=== PATIENT | male | born 1935 | race Caucasian/White ===

== ENCOUNTER 2016-08-13 12:03 | Inpatient (IN) | payer MEDICARE, OTHER ==
[~2016-08-13] VITALS: Ht 167.6 cm; Wt 94.0 kg
[~2016-08-13 12:03] MED LIST: ALFU10TA11 PO; ATRV10T PO; BISA-67 PO; CHOL5000 PO; CLOT30SO TOPICAL; DEXT1DRO8 BOTH_EYES
[2016-08-13 12:41] VITALS: BP 158/81; PULSE 66; RESP 12; O2SAT 97
[2016-08-13 12:56] LABS: BASOPHILS % (AUTO) 0.3 % (0-3); EOSINOPHILS % (AUTO) 1.1 % (0-5); Mean Corpuscular Hemoglobin 31.4 pg (27.0-35.0); NEUTROPHILS % (AUTO) 75.4 % (40-74); Platelet Count 159 bil/L (150-400)
--- NOTE | 2016-08-13 13:04 | DRSVH ---
PROCEDURE: CT BRAIN (TPA) ([id number]) INDICATIONS: Stroke TECHNIQUE: Noncontrast 4.5 mm thick angled axial sections acquired from the foramen magnum to the vertex, with c oronal reformats. COMPARISON: None. FINDINGS: Image quality: Excellent. CSF spaces: Basal cisterns are patent. No extra-axial fluid collections. The ventricles are symmet obinna in size and shape. Brain: No intracranial bleeds or masses. There is cerebral volume loss for age, with resultant vent ricular and sulcal prominence. There are periventricular and deep white matter chronic small vessel ischemic changes. There is intracranial internal carotid artery atherosclerosis. Skull and face: Calvarium and visualized facial bones appear intact, without suspicious lesions. Sinuses: There is opacification of the right maxillary sinus. Septal deviation to the left is presen t posteriorly. Bilateral anibal bullosa. Mild ethmoidal membrane thickening. Mastoids appear clear. IMPRESSION: 1. No intracranial hemorrhage is identified. 2. Mild age-related atrophy and chronic deep white matter ischemic changes. 3. Chronic sinusitis. This study fulfills neurological imaging criteria for inclusion or exclusion of acute stroke therapie s based on available published neurological guidelines. Dictated by: Jackson Meraz M.D. on 08/13/2016 at 13:03 Approved by: Jackson Meraz M.D. on 08/13/2016 at 13:03
--- NOTE | 2016-08-13 13:07 | ED.REPORT ---
HPI-Stroke / CVA Aug 13, 2016 ED Provider: Miguel Hamilton MD An 80 year old male with a medical history including [place], hyperlipidemia, hypertension, and CAD s/p cardiac stenting presents to the ED via EMS with sudden-onset right arm weakness onset 11:10 this morning, which is his last known well. He also reports facial numbness, nausea, and general malaise. He denies vomiting, diarrhea, fever, or cough. EMS found the patient to have right arm weakness, intermittent discovering dysphasia, and a right-sided facial droop which have mostly resolved in the ED. The patient is not anticoagulated and has had no recent surgeries. Nursing Notes Stated Complaint: RIGHT SIDE WEAKNESS Chief Complaint: Stroke Symptoms Nursing Notes Reviewed: Yes Allergies: Coded Allergies: No Known Drug Allergies (Verified Allergy, Unknown, 10/10/15) Scheduled Alfuzosin ER (Alfuzosin ER) 10 Mg Tab.er.24h 10 MG PO DAILY (Reported) Atorvastatin (Lipitor) 10 Mg Tab 10 MG PO HS (Reported) Cholecalciferol (Vitamin D3) (Vitamin D3) 5,000 Unit Capsule 5,000 UNIT PO BID ( Reported) Clotrimazole 1% (Clotrimazole 1%) 30 Ml Solution 1 APPLIC TOPICAL BID (Reported ) To toenails - rub into nails. Scheduled PRN Bisacodyl (Dulcolax) 5 Mg Tablet.dr 10 MG PO DAILY PRN PRN For Constipation ( Reported) Dextran 70/Hypromellose/Pf (Artificial Tears Drops) 1 Each Droperette 2 DROP BOTH_EYES BID PRN PRN For Eye Irritation (Reported) General Time Seen by Provider: 12:29 Chief Complaint Weakness Arm right Hx Obtained From: Patient, EMS Arrived By: Ambulance Time last known well 1110 Sudden in Onset?: Yes Symptom Duration: 1 - 4 hours Progression Since Onset: Gradually improving Severity: Current: No pain currently Severity: Maximum: No pain Associated with: Reports: Nausea Pertinent Negative: Relieved by nothing Context: Immunizations Unknown Recent Healthcare: No recent doctor visit Similar Sx Previous: No Risk Factors )( TPA Administration/Criteria Stroke Thrombolytic Therapy : TPA Considered: Yes Neurologist Contacted: Yes Disc Risk/Benefit/Alternatives: Yes Consent Obtained: Patient Intensive Monitoring Performed: Yes TPA Administered Intravenously: No, informed refusal NIH Stroke Scale Level of Consciousness: Alert and responsive (0) Ask Month & Age: Both questions right (0) Open/Close Eyes/Hand Art History Professor: Performs both tasks (0) Horizontal EO Movements: None (0) Visual Coleman: No visual loss (0) Facial Palsy: Normal symmetry (0) Right Arm Motor Drift (10s): No drift 10 sec (0) Left Arm Motor Drift (10s): No drift 10 sec (0) Right Leg Motor Drift (5s): No drift 5 sec (0) Left Leg Motor Drift (5s): No drift 5 sec (0) Limb Ataxia FNF/Heel-Hurst: Ataxia in 1 limb (1) Sensation (Arms/Legs/Face): No sensory loss (0) Language Aphasia: No aphasia, normal (0) Dysarthria: Slurring intelligible (1) Extinction/Inattention: No exctinct/inattent (0) NIHSS Score: 2 Time NIHSS Performed: 12:00 Date NIHSS Performed: Aug 13, 2016 Past Medical History Past Medical History Notes: Pt records obtained from [facility] in September 2015 indicated bladder mass. Per VIOLETTA Wynn, pt is aware of this and pt has refused further evaluation. Past Medical History WA in 2007 CAD Hyperlipidemia Hypertension Allergic arthiritis One functioning kidney on right side Hx of kidney stones Past Surgical History Cardiac stenting Left inguinal herniography Bilateral carpal tunnel surgery Family History His father when he was 3 years old. His mother of Alzheimer at the age of 90. Smoking History Never Smoker Social History Alcohol Use: Denies alcohol use Other Social History: Lives alone Ambulatory Status Independent Review of Systems Review of Systems Note: + right-sided facial droop Constitutional: Reports: Malaise, Denies: Fever Respiratory: Denies: Non-productive cough, Shortness of breath GI: Reports: Nausea, Denies: Diarrhea, Vomiting Neurologic: Reports: Focal weakness (Right arm), Numbness (Face), Unable to speak (Intermittent dysphasia) Complete sys rev & neg: except as marked. Physical Exam Initial Vital Signs Vital Signs (First) Date Time Temp Pulse Resp B/P Pulse Ox O2 Delivery O2 Flow Rate FiO2 08/13/16 12:41 36.2 66 12 158/81 97 Room Air Initial VS: Reviewed ENT: Mucous membranes moist, Conjunctiva normal Abdomen / GI: Soft, Non-tender Skin: Warm, Dry, No cyanosis Psychiatric: Mood/affect normal, Behavior normal, Normal thought content General/Constitutional: Awake, Alert, No acute distress Head / Eyes: Atraumatic, Normocephalic, PERRL, EOMI Neck: Supple, Full range of motion Respiratory / Chest: Breath sounds NL, Breath sounds = bilat, No respiratory distress Cardiovascular: Heart rate NL, Regular rhythm, Heart sounds NL Neurologic: Oriented X3, No sensory deficits, Memory NL Speech: Positive: Slurred (Mild) Focal Weakness: Negative: Lower extremity bilat, Upper extremity bilat Cerebellar Dysfunction: Positive: Ataxia peripheral (Right hand) See NIH Stroke Scale Interpretation & Diagnostics Lab Results Interpretation Result Diagram: 08/13/16 1245 08/13/16 1245 Test 08/13/16 12:45 White Blood Count 6.7th/mm3 (3.8-10.1) Red Blood Count 4.71mil/mm3 (4.40-5.80) Hemoglobin 14.8g/dL (13.8-17.2) Hematocrit 42.4% (41.0-50.0) Mean Corpuscular Volume 90.0fL (81-100) Mean Corpuscular Hemoglobin 31.4pg (27.0-35.0) Mean Corpuscular Hemoglobin Concent 34.9% (32.0-37.0) Red Cell Distribution Width 12.2% (12.3-15.4) Platelet Count 159bil/L (150-400) Neutrophils (%) (Auto) 75.4% (40-74) Lymphocytes (%) (Auto) 17.0% (14-46) Monocytes (%) (Auto) 6.0% (4-12) Eosinophils (%) (Auto) 1.1% (0-5) Basophils (%) (Auto) 0.3% (0-3) Prothrombin Time 11.1sec (8.1-12.5) Prothromb Time International Ratio 1.04ratio Sodium Level 137mEq/L (134-144) Potassium Level 4.0mEq/L (3.5-5.2) Chloride Level 100mEq/L (97-108) Carbon Dioxide Level 22mmol/L (18-29) Blood Urea Nitrogen 18mg/dL (8-27) Creatinine 0.91mg/dL (0.76-1.27) Estimat Glomerular Filtration Rate 85mL/min (>59) Glucose Level 141mg/dL (60-99) Calcium Level 8.7mg/dL (8.5-10.1) Total Bilirubin 0.6mg/dL (0.0-1.2) Aspartate Amino Transf (AST/SGOT) 16U/L (0-50) Alanine Aminotransferase (ALT/SGPT) 15U/L (0-44) Alkaline Phosphatase 64U/L (25-160) Troponin T < 0.010ug/L (0.0-0.011) Total Protein 6.4g/dL (6.4-8.4) Albumin 4.2g/dL (3.4-5.0) Hold Bartlett Top Tube Received (Received) ECG Interpretation ECG Interpretation: Sinus rhythm rate 66 LBBB Time: 13:13 Interpreted by: ED physician CT Head Interpretation IMPRESSION: 1. No intracranial hemorrhage is identified. 2. Mild age-related atrophy and chronic deep white matter ischemic changes. 3. Chronic sinusitis. This study fulfills neurological imaging criteria for inclusion or exclusion of acute stroke therapies based on available published neurological guidelines. Dictated by: Jackson Meraz M.D. on 08/13/2016 at 13:03 Study: Head CT no contrast (TPA) Interpretation / Wet Read by: Interpret - Radiologist Re-Eval/Medical Decision Med Decision/Clinical Course Neurologist at [facility] Dr. Biggs, willing to discuss the case with the patient but the patient declines TPA therapy therefore telemedicine contact is not indicated. Patient arrives with a stroke score of [address] He is within the TPA window at approximately 2 hours after the onset of symptoms. On 2 separate occasions in great detail I encouraged the patient to consider TPA as a treatment alternative. He declined this both times. I explained to him that there was a significant chance of better outcome that is more independent functioning with the medication despite its small risk of intracranial hemorrhage. With this information presented in detail multiple times the patient has declined administration of TPA. In his defense, he has improved somewhat since the paramedics contacted him. At the time of EMS contact his right face was weak as was his right arm. At the time I examine him this is no longer the case. He continues to have some small degree of dysarthria and significant ataxia in his right upper extremity. Source of Hx: Old records Re-Evaluation/Progress #1: Time of Eval: 13:08 Patient Status: Condition improved Re-Evaluation/Progress Note: Discussed with patient potential plan for TPA. He is not inclined to take it, but is willing to consider it. Re-Evaluation/Progress #2: Time of Eval: 13:15 Patient Status: Condition improved Re-Evaluation/Progress Note: Patient rechecked. He can walk but is unable to write with his right hand. Re-Evaluation/Progress #3: Time of Eval: 13:30 Patient Status: Condition improved Re-Evaluation/Progress Note: Patient refuses TPA. Discussed with patient CT results, diagnosis, and plan for admit. Patient agrees with plan for care and all questions were addressed. Consultation #1: Consulted With: Neurology Call Returned at: 13:11 Crown Ironer Operator: Will see patient (Video), Agrees with eval, Agrees with plan Note: Dr. Nicholas Liu, [facility]: Recommends walking patient and testing handwriting. Consultation #2: Consulted With: Neurology Call Returned at: 13:22 Crown Ironer Operator: Agrees with eval, Agrees with plan Note: Dr. Nicholas Liu, [facility]: Informed of patient's TPA refusal Consultation #3: Referral / Consult Name: Breana Esquivel MD Consulted With: Hospitalist Call Returned at: 14:02 Crown Ironer Operator: Agrees with eval, Agrees with plan, Accepts admit Counseled Regarding: Diagnosis, Need for admission Patient Discharge & Departure Impression: Primary Impression: Cerebrovascular accident CVA mechanism: unspecified Qualified Code: I63.9 - Cerebral infarction, unspecified Disposition: ADMITTED TO HOSPITAL Discharge Condition All VS Reviewed: Yes Condition: Stable Referrals: Martha Blue (PCP) Crit Care Except Billable Proc Time Spent: 30-74 minutes Services Performed: Patient management by me, Time spent at bedside, Reviewing test results, Reviewing imaging, Discussing patient care, Documentation in record Scribe Attestation Portions of this note were transcribed by Cassandra Chinchilla. I, Dr. Hamilton, personally performed the history, physical exam, and medical decision-making; I reviewed and confirmed the accuracy of the information in the transcribed note. Signed by: Giovanni Torres, 08/13/2016, 14:29 copies to: Martha Blue Kirk H MD Aug 13, 2016 13:07 CASSANDRA CHINCHILLA Aug 13, 2016 13:22
[2016-08-13 13:10] LABS: INR 1.04 ratio
[2016-08-13] MEDS ORDERED: Ondansetron 2 mg/mL 2 mL Inj IVPUSH ONE (13:15)
[2016-08-13 13:45] LABS: TROPONIN T < 0.010 ug/L (0.0-0.011)
[2016-08-13] MEDS ORDERED: Labetalol 5 mg/mL 4 mL Inj IVPUSH PRN (14:30)
[2016-08-13] MEDS ORDERED: hydrALAZINE 20 mg/mL Inj IVPUSH PRN (14:30)
[2016-08-13] MEDS ORDERED: Ondansetron 2 mg/mL 2 mL Inj IV PRN (14:30)
[2016-08-13] MEDS ORDERED: Artificial Tears 15 mL Ophthalmic Solution BOTH_EYES PRN (14:40)
[2016-08-13] MEDS ORDERED: CHOL100043 PO (14:47)
[2016-08-13] MEDS ORDERED: Sodium Chloride NAS 45 mL Spray NASAL PRN (14:50)
--- NOTE | 2016-08-13 14:58 | PCM.HPMED ---
Subjective Date of Service Aug 13, 2016 Primary Provider: Admitting Physician: Primary Care Physician: Heike,[facility] Attending Physician: Chief Complaint: right weak upper extremity HISTORY was OBTAINED FROM PATIENT / [facility] NOTES History of present illness 80-year-old male, gross hematuria with aspirin/Plavix for coronary stent 2007, at 11:15 noticed right arm weakness, EMS documented right facial droop, in the ER improved facial droop ongoing dysarthria, ongoing tongue numbness, improvement of right upper extremity strength. Patient refused TPA and all blood thinners. He indicates CT abdomen and pelvis 3 years ago had a bladder mass, he is declining to go to [place] for a urology visit at the [place]. He will agree to one aspirin right now. No prior CVA. Nausea has resolved. Per EMS BP 172/53, in the ER BP 158/81 Review of Systems - none of the following - F/C/ / wt change/ sob / cough / cp / acid reflux /diarrhea / bleeding/bruising / leg swelling / change in voiding / yeast infections / rash Slowed urine due to BPH FAMILY HX Sister of unknown causes, Alzheimer's SOCIAL HX Never smoker MEDICATIONS Alfuzosin Lipitor 10 Eyedrops Past Medical/Surgical HX BPH Coronary stent 2007/[place]/Hypertension/dyslipidemia Dementia versus cognitive defect noted September 2015 Carpal tunnel Kidney stones/left kidney is not functional Bladder mass CT [facility] September 2015 Acid reflux Back injury Arthritis Allergies Coded Allergies: No Known Drug Allergies (Verified Allergy, Unknown, 10/10/15) PMH Social History Hx Alcohol Use: No Hx Substance Use: No Hx Tobacco Use: No Smoking Status: Never Smoker Exam Vital Signs Vital Sign - Last Date Time Temp Pulse Resp B/P Pulse Ox O2 Delivery O2 Flow Rate FiO2 08/13/16 12:41 36.2 66 12 158/81 97 Room Air Lab and Diagnostics Labs Exam on admission 2 L oxygen NAD A and O x 3 mood affect WNL, redirectable NC/AT no icterus no injected eyes EOMI PERRL /no pharyngeal lesions/ no oral lesions / hearing intact Supple neck CTAB equal chest rise / no accessory muscle use / speaks in full sentences / no rrw RRR S1 S2 / no mrg / 2+ radial pulses Soft nt nd + BS no hepatosplenomegaly Trace edema no cyanosis no ecchymosis of lower extremities No rash / no jaundice KINSEY CNII-XII grossly intact symmetrical No dysmetria of bilateral upper and lower limbs mild left nasolabial fold less prominence mild dysarthria Strength grossly intact of bilateral upper and lower limbs except trace Right extremity weakness INR 1.04 EKG sinus rhythm left bundle branch block, poor R-wave regression, PAC PROCEDURE: CT BRAIN (TPA) ([id number]) INDICATIONS: Stroke TECHNIQUE: Noncontrast 4.5 mm thick angled axial sections acquired from the foramen magnum to the vertex, with coronal reformats. COMPARISON: None. FINDINGS: Image quality: Excellent. CSF spaces: Basal cisterns are patent. No extra-axial fluid collections. The ventricles are symmetric in size and shape. Brain: No intracranial bleeds or masses. There is cerebral volume loss for age , with resultant ventricular and sulcal prominence. There are periventricular and deep white matter chronic small vessel ischemic changes. There is intracranial internal carotid artery atherosclerosis. Skull and face: Calvarium and visualized facial bones appear intact, without suspicious lesions. Sinuses: There is opacification of the right maxillary sinus. Septal deviation to the left is present posteriorly. Bilateral anibal bullosa. Mild ethmoidal membrane thickening. Mastoids appear clear. IMPRESSION: 1. No intracranial hemorrhage is identified. 2. Mild age-related atrophy and chronic deep white matter ischemic changes. 3. Chronic sinusitis. This study fulfills neurological imaging criteria for inclusion or exclusion of acute stroke therapies based on available published neurological guidelines. Result Diagram: 08/13/16 1245 08/13/16 1245 Assessment & Plan Active issues and reason for admission 80-year-old male, prior coronary stent who discontinued Plavix and aspirin due to gross hematuria, known bladder mass unable to go to the [place] for urology visit due to distance, refused TPA for stroke admission, ongoing dysarthria, resolving right upper extremity weakness, less prominent left nasal labial fold. -- Aspirin 1 he agrees to this. Consider social work assistance for urology consult in town post hospitalization to evaluate for gross hematuria from 2007 and bladder mass. -- Statin, pending A1c, lipid panel -- Permissive hypertension, MRI, ultrasound carotids, echo, serial troponin -- AREA CAPTAIN PTOT Elevated blood glucose -- A1c pending Accu-Cheks Chronic issues known prior to admission, present on admission BPH Coronary stent 2007/[place]/Hypertension/dyslipidemia Dementia versus cognitive defect noted September 2015 Carpal tunnel Kidney stones/left kidney is not functional Bladder mass CT [facility] September 2015 Acid reflux Back injury Arthritis Diet speech therapy pending DVT prophylaxis scd ambulate Code full Disposition OBS status Assessment and plan were discussed with patient Breana Esquivel MD Aug 13, 2016 14:58
[2016-08-13] MEDS ORDERED: MetoCLOpramide 5 mg/mL 2 mL Inj IVPUSH ONE (15:00)
[2016-08-13 16:38] VITALS: BP 128/71; PULSE 78; RESP 16; O2SAT 95
[2016-08-13 16:49] VITALS: PULSE 77
--- NOTE | 2016-08-13 17:00 | NUR ---
ADMIT Patient received from the ED via a gurney. He was able to transfer independently in bed. Patient is alert and oriented to person, place and time. Equal hand teletype technician/BLE strength. No facial drooping noted. He denies pain/nausea/SOB. Patient is placed on remote tele. Per telegraphic typewriter installer patient is on sinus rhythm; HR-83. He is NPO at this time. Speech eval is pending at this time. Oriented to room, call light and bathroom. Admit done by Rachel Evans RN.
--- NOTE | 2016-08-13 18:34 | DRSVH ---
PROCEDURE: US BILATERAL DUPLEX DOPPLER IMAGING OF THE CAROTIDS ([id number]) INDICATIONS: Evaluate stroke follow up TECHNIQUE: Color and pulse Doppler interrogation was performed of both carotid systems, with image documentation and velocity measurements. COMPARISON: None. FINDINGS: All stenosis calculations are based on NASCET criteria. Right side: Brachial blood pressure: Not obtained due to peripheral IV Common carotid artery peak systolic velocity: 98 cm/sec. Internal carotid artery peak systolic velocity: 78 cm/sec. Internal carotid artery end diastolic velocity: 10 cm/sec. External carotid artery peak systolic velocity: 113 cm/sec. ICA/CCA peak systolic ratio: 0.8. Schneider scale imaging description: No atheromatous plaque Percent internal carotid artery stenosis: No stenosis. Vertebral artery: Flow direction is antegrade. Left side: Brachial blood pressure: 128/71 mm Hg. Common carotid artery peak systolic velocity: 87 cm/sec. Internal carotid artery peak systolic velocity: 76 cm/sec. Internal carotid artery end diastolic velocity: 14 cm/sec. External carotid artery peak systolic velocity: 83 cm/sec. ICA/CCA peak systolic ratio: 0.88. Schneider scale imaging description: Mild atheromatous plaque at the carotid bulb Percent internal carotid artery stenosis: Less than 50% stenosis. Vertebral artery: Flow direction is antegrade. IMPRESSION: 1. No stenosis of the right internal carotid artery. 2. Less than 50% stenosis of the left internal carotid artery. Dictated by: Gladys Bradley M.D. on 08/13/2016 at 18:32 Approved by: Gladys Bradley M.D. on 08/13/2016 at 18:32
--- NOTE | 2016-08-13 19:40 | NUR ---
Evaluation completed. Please go to "Notes" then click on "Assessments and Notes" (bottom left corner of screen). Then select appropriate discipline tab on top of screen.
[2016-08-13 20:10] VITALS: BP 131/75; PULSE 81; RESP 17; O2SAT 94
[2016-08-14] VITALS (7 sets, daily range): BP systolic 117–145; BP diastolic 72–81; PULSE 61–73; RESP 16–18; O2SAT 94–96
--- NOTE | 2016-08-14 05:22 | NUR ---
Diet Change Pt reports no pain this shift. Diet changed to [facility] soft w/nectars (no straws, cuing to chin tuck) and pt tolerates juice and PBJ sandwich before HS. Bilateral valve fitter and strength, follows commands, AOx4; no apparent defecits post CVA. Pt states he can't write with his R hand yet, but complete control of digits and appendage. Pt on TELE, sinus. CSM intact to all appendages. Pt calls appropriately, no complaints of GI/Cardiac/Resp distress. Will continue to monitor
[2016-08-14 05:34] LABS: Mean Corpuscular Hemoglobin 31.5 pg (27.0-35.0); Mean Corpuscular Volume 90.9 fL (81-100)
[2016-08-14 06:06] LABS: TROPONIN T 0.01 ug/L (0.0-0.011)
--- NOTE | 2016-08-14 10:09 | NUR ---
Evaluation completed. Please go to "Notes" then click on "Assessments and Notes" (bottom left corner of screen). Then select appropriate discipline tab on top of screen.
--- NOTE | 2016-08-14 10:13 | NUR ---
Activity/CVA Assessment Patient up in halls ambulating with PT. Steady gait, equal drag out man and strength. Fine motor skill with eating and writing still not at baseline. Patient states he feels "just about normal."
--- NOTE | 2016-08-14 11:21 | DRSVH ---
[facility] [address] [place] [address] Echocardiogram Report Name: NAV GRACE CStudy Date : 08/14/2016 Height: 66 in Hospital Exam Location: [facility] Weight: 195 lb Gender: Male BSA: 2.0 m2 : 1935 Age: 80 yrs BP: 120/72 mmHg Reason For Study: CVA Ordering Physician: Performed By: Gilbert Trejo Interpretation Summary The left ventricle is mildly dilated. A small thrombus is noted in the left ventricular apex measuring approximately 1.3 cm x 1.3 cm. There is moderate global hypokinesis of the left ventricle. There is apical akinesis. There is a significant dyssynchronous contraction pattern, consistent with a conduction abnormality. The E/A ratio is reversed with an elevated E/E', suggesting impaired early relaxation of the left ventricle with possible increased filling pressures. The IVC is dilated (diameter is greater than 2.1 cm) yet it collapses greater than 50% with a sniff. This suggests a right atrial pressure of 8 mm Hg. There is no significant valvular heart disease. No other echocardiographic abnormalities seen. Procedure: A two-dimensional transthoracic echocardiogram with color flow and Doppler was performed. The study quality was technically good. There is no prior echocardiogram noted for this patient. The patient was in normal sinus rhythm during the exam. Left Ventricle: The left ventricle is mildly dilated. Left ventricular wall thickness is mildly increased. Proximal septal thickening is noted. A small thrombus is noted in the left ventricular apex measuring approximately 1.3 cm x 1.3 cm. The ejection fraction is estimated to be 35-40%. There is moderate global hypokinesis of the left ventricle. There is apical akinesis. There is a significant dyssynchronous contraction pattern, consistent with a conduction abnormality. The E/A ratio is reversed with an elevated E/E', suggesting impaired early relaxation of the left ventricle with possible increased filling pressures. Right Ventricle: The right ventricle is normal in size and function. Atria: The left atrium is moderately dilated. Right atrial size is normal. The interatrial septum is intact with no evidence for an atrial septal defect. Mitral Valve: The mitral valve is normal in structure and function. The mitral valve leaflets are slightly calcified. There is mild mitral regurgitation. Aortic Valve: The aortic valve is normal in structure and function. The aortic valve is trileaflet. The aortic valve opens well. No aortic regurgitation is present. Tricuspid Valve: The tricuspid valve is normal in structure and function. There is trace tricuspid regurgitation. The right ventricular systolic pressure is estimated at 21 mmHg assuming a right atrial pressure of 8 mm Hg. Pulmonic Valve: The pulmonic valve is normal in structure and function. There is trace pulmonic regurgitation. Great Vessels: The aortic root is mildly dilated. The dimensions of the ascending aorta are normal. The pulmonary artery is normal size. The IVC is dilated (diameter is greater than 2.1 cm) yet it collapses greater than 50% with a sniff. This suggests a right atrial pressure of 8 mm Hg. Pericardium/ Pleura There is no pericardial effusion. There is no pleural effusion. MMode/2D Measurements & Calculations LVIDd: 6.0 cm LA dimension: 4.9 cm RA long axis: 5.8 cm Ao root diam LVIDs: 4.5 cm FS: 25.5 % LA A2 area: 24.8 cm RA area: 20.0 cm Aortic Jxn EPSS: 0.69 cm LA A4 area: 24.2 cm RA vol: 59.0 ml IVSd: 1.2 cm LA length (vol): 5.9 cm RA : 29.8 ml/m2 asc Aorta LVPWd: 0.73 cmLA vol: 86.7 ml Diam: 3.8 cm LA vol index: 43.8 ml/m IVC diam: 2.2 cm EDV(MOD-sp2) LV wong. diameter/BSA LV sys. diameter/BSA (cm/m^2): 3.0 (cm/m^2): 2.3 Doppler Measurements & Calculations Ao V2 max MV E max garfield MV E/A: 0.81 TR max garfield: 181.5 cm/sec : 83.0 cm/sec : 47.1 cm/sec Med Peak E' Garfield TR max P.2 mmHg Ao max PG MV A max garfield PA V2 max: 47.7 cm/sec : 2.8 mmHg : 58.2 cm/sec E/E' med: 18.3 PA mean P.56 mmHg Ao mean PG Pulm A Revs Dur PA Accel Time: 0.13 sec : 1.8 mmHg MV A dur: 0.16 sec MV dec time Ao V2 mean PA V2 mean Pulm A Revs Dur - MV A : 0.34 sec : 66.0 cm/sec : 36.2 cm/sec Dur: -0.03 msec Ao V2 VTI PA pr(Accel) : 20.0 cm : 19.1 mmHg Reading Physician:11:20 AM
[2016-08-14] MEDS ORDERED: Heparin 25K Unit/500mL 0.45 NS 25,000 UNIT in IV Premix 1 EACH IV SCH (12:30)
[2016-08-14] MEDS ORDERED: Heparin 5,000 Unit/mL Inj IVPUSH PRN (12:30)
--- NOTE | 2016-08-14 14:11 | DRSVH ---
PROCEDURE: MRI BRAIN WITHOUT CONTRAST ([id number]) INDICATIONS: right arm/facial tongue weak TECHNIQUE: Noncontrast axial T1 spin echo, axial T2 fast spin echo, sagittal and axial FLAIR, coronal T2 fast sp in echo, axial gradient echo, axial diffusion and ADC through the brain. COMPARISON: None. FINDINGS: Image quality: Diagnostic. CSF Spaces: Basal cisterns are patent. No extra-axial fluid collections. Ventricles are prominent in size corresponding parenchymal volume loss is also present. Brain: No intracranial masses or hemorrhage. Schneider/white matter interface is normal. Brainstem appe ars normal. The small to moderate-sized areas of confluent increased flair signal are identified with in the periventricular white matter. Additional scattered areas of increased flair signal are noted within the deep white matter of the supratentorial brain. There is increased signal both involving t he schneider and white matter identified along the superior aspect of the posterior left frontal lobe. Th arun areas of abnormal flair signal correspond with areas of increased diffusion signal, compatible wi th acute ischemia. These areas of ischemia are multifocal rather than representing a large geographi c area of ischemia. Normal intravascular flow voids are present. Skull and face: Calvarium has normal marrow signal. Orbits appear normal. Sinuses: Prominent mucosal thickening of the right maxillary sinus is present. Otherwise, the remai nder of the paranasal sinuses and mastoid air cells are clear. IMPRESSION: 1. Multifocal small areas of acute ischemia within the left frontal lobe are more suggestive of smal l showering emboli, rather than occlusion of a large intracranial vessel. 2. Mild to moderate chronic small vessel ischemic changes. 3. Moderate parenchymal volume loss. 4. Chronic right maxillary sinus disease. Dictated by: Josias Frank M.D. on 08/14/2016 at 13:09 Approved by: Josias Frank M.D. on 08/14/2016 at 13:09
--- NOTE | 2016-08-14 15:45 | PCM.PNMED ---
Subjective Date of Service Aug 14, 2016 Subjective Patient improved neurologically, Rt arm is still clumsy with hand-writing but able to squeeze back to normal Speech also came in normal Exam Vital Signs Vital Sign - Last Date Time Temp Pulse Resp B/P Pulse Ox O2 Delivery O2 Flow Rate FiO2 08/14/16 12:47 36.4 62 16 131/78 95 Room Air Intake and Output 08/13/16 08/13/16 08/14/16 Cumulative From/Thru 15:00 23:00 07:00 08/13/16 12:41 - 08/14/16 05:12 Intake Total 0 ml 420 ml 420 ml Output Total 700 ml 900 ml 1600 ml Balance -700 ml -480 ml -1180 ml Intake Oral 0 ml 420 ml 420 ml Output Urine Total 700 ml 900 ml 1600 ml # Bowel Movements 0 0 0 Exam NAD, comfortably laying down on the bed no JVD, MMM, no LAD RRR, nl s1, s2 no mrg CTAB, no w,c S,ND,NT,normoactive BS+ warm, no edema, pulses 2/2 Neuro:speech coherent, fluent, AAOx3 PERRLA, EOMI, symmetric face, no uvulae tongue deviation, able shrug shoulders equally able rotate neck equally on both sides FTN, dysdiadochokinesia intact, romberg negative, no pronator drift motor 5/5 throughout, sensory intact to dull touch IVs and Medications Medications Reviewed: Medications were reviewed in detail Lab and Diagnostics Result Diagram: 08/14/1651808/14/16518 X-Rays, CTs and MRIs PROCEDURE: MRI BRAIN WITHOUT CONTRAST ([id number]) INDICATIONS: right arm/facial tongue weak TECHNIQUE: Noncontrast axial T1 spin echo, axial T2 fast spin echo, sagittal and axial FLAIR, coronal T2 fast spin echo, axial gradient echo, axial diffusion and ADC through the brain. COMPARISON: None. FINDINGS: Image quality: Diagnostic. CSF Spaces: Basal cisterns are patent. No extra-axial fluid collections. Ventricles are prominent in size corresponding parenchymal volume loss is also present. Brain: No intracranial masses or hemorrhage. Schneider/white matter interface is normal. Brainstem appears normal. The small to moderate-sized areas of confluent increased flair signal are identified within the periventricular white matter. Additional scattered areas of increased flair signal are noted within the deep white matter of the supratentorial brain. There is increased signal both involving the schneider and white matter identified along the superior aspect of the posterior left frontal lobe. These areas of abnormal flair signal correspond with areas of increased diffusion signal, compatible with acute ischemia. These areas of ischemia are multifocal rather than representing a large geographic area of ischemia. Normal intravascular flow voids are present. Skull and face: Calvarium has normal marrow signal. Orbits appear normal. Sinuses: Prominent mucosal thickening of the right maxillary sinus is present. Otherwise, the remainder of the paranasal sinuses and mastoid air cells are clear. IMPRESSION: 1. Multifocal small areas of acute ischemia within the left frontal lobe are more suggestive of small showering emboli, rather than occlusion of a large intracranial vessel. 2. Mild to moderate chronic small vessel ischemic changes. 3. Moderate parenchymal volume loss. 4. Chronic right maxillary sinus disease. Dictated by: Josias Frank M.D. on 08/14/2016 at 13:09 Approved by: Josias Frank M.D. on 08/14/2016 at 13:09 Assessment & Plan Active issues and reason for admission 80-year-old male, prior coronary stent who discontinued Plavix and aspirin due to gross hematuria, known bladder mass unable to go to the [place] for urology visit due to distance, refused TPA for stroke admission, ongoing dysarthria, resolving right upper extremity weakness, less prominent left nasal labial fold. 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 LV thrombus on TTE, POA, unclear onset, unlikely result of acute NM given no signs of ACS at this time, tropx3 sets, EKG-no ischemic chg, repeat TTE did suggest ischemic cardiomyopathy consistent to hx of CAD s/p stent 2007/[place] -Patient is to follow up with cardiology at [place] upon d/c 3.Bladder mass CT KUB September 2015, h/h remained stable, pt denied gross hematuria. 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
[2016-08-14 20:27] LABS: APPEARANCE,URINE CLEAR (CLEAR,HAZY); COLOR,URINE STRAW (YELLOW); OCCULT BLOOD,URINE TRACE (NEGATIVE); UROBILINOGEN,URINE NORMAL (NORMAL)
--- NOTE | 2016-08-14 22:37 | PCM.CONPHA ---
Subjective right weak upper extremity HISTORY was OBTAINED FROM PATIENT / [employer] NOTES History of present illness 80-year-old male, gross hematuria with aspirin/Plavix for coronary stent 2007, at 11:15 noticed right arm weakness, EMS documented right facial droop, in the ER improved facial droop ongoing dysarthria, ongoing tongue numbness, improvement of right upper extremity strength. Patient refused TPA and all blood thinners. He indicates CT abdomen and pelvis 3 years ago had a bladder mass, he is declining to go to [place] for a urology visit at the [place]. He will agree to one aspirin right now. No prior CVA. Nausea has resolved. 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 Bladder mass CT KUB September 2015 Acid reflux Back injury Arthritis Objective Vital Signs Date Time Temp Pulse Resp B/P Pulse Ox O2 Delivery O2 Flow Rate FiO2 08/14/16 20:39 36.4 66 18 117/72 95 Room Air 08/14/16 16:43 36.3 62 16 145/81 95 Room Air 08/14/16 12:47 36.4 62 16 131/78 95 Room Air 08/14/16 09:44 64 08/14/16 08:51 36.6 61 16 125/80 96 Room Air 08/14/16 05:15 66 08/14/16 00:22 36.5 73 16 120/72 94 Room Air Intake and Output 08/12/16 08/13/16 08/14/16 00:00 00:00 00:00 Intake Total 0 ml Output Total 700 ml Balance -700 ml Weight (Kilograms): 88.500 Test 08/13/16 12:45 08/14/16 05:19 08/14/16 19:00 Neutrophils (%) (Auto) 75.4% (40-74) Lymphocytes (%) (Auto) 17.0% (14-46) Monocytes (%) (Auto) 6.0% (4-12) Eosinophils (%) (Auto) 1.1% (0-5) Basophils (%) (Auto) 0.3% (0-3) Prothrombin Time 11.1sec (8.1-12.5) Prothromb Time International Ratio 1.04ratio Total Bilirubin 0.6mg/dL (0.0-1.2) Aspartate Amino Transf (AST/SGOT) 16U/L (0-50) Alanine Aminotransferase (ALT/SGPT) 15U/L (0-44) Alkaline Phosphatase 64U/L (25-160) Total Protein 6.4g/dL (6.4-8.4) Albumin 4.2g/dL (3.4-5.0) Hold Bartlett Top Tube Received (Received) White Blood Count 7.4th/mm3 (3.8-10.1) Red Blood Count 4.61mil/mm3 (4.40-5.80) Hemoglobin 14.5g/dL (13.8-17.2) Hematocrit 41.9% (41.0-50.0) Mean Corpuscular Volume 90.9fL (81-100) Mean Corpuscular Hemoglobin 31.5pg (27.0-35.0) Mean Corpuscular Hemoglobin Concent 34.6% (32.0-37.0) Red Cell Distribution Width 12.5% (12.3-15.4) Platelet Count 173bil/L (150-400) Sodium Level 138mEq/L (134-144) Potassium Level 4.3mEq/L (3.5-5.2) Chloride Level 102mEq/L (97-108) Carbon Dioxide Level 24mmol/L (18-29) Blood Urea Nitrogen 15mg/dL (8-27) Creatinine 0.97mg/dL (0.76-1.27) Estimat Glomerular Filtration Rate 79mL/min (>59) Glucose Level 106mg/dL (60-99) Calcium Level 8.8mg/dL (8.5-10.1) Troponin T 0.010ug/L (0.0-0.011) Triglycerides Level 104mg/dL (0-149) Cholesterol Level 149mg/dL (100-199) LDL Cholesterol, Calculated 74.200mg/dL (0-99) VLDL Cholesterol 20.800mg/dL HDL Cholesterol 54mg/dL (>39) Cholesterol/HDL Ratio 2.76 (0.0-4.4) Urine Color Straw (YELLOW) Urine Appearance Clear (CLEAR,HAZY) Urine pH 7.0 (5.0-8.0) Urine Specific [place] 1.010 (1.003-1.035) Urine Protein Negativemg/dL (NEG,TRACE) Urine Glucose (UA) Negativemg/dL (NEGATIVE) Urine Ketones Negativemg/dL (NEGATIVE) Urine Occult Blood Trace (NEGATIVE) Urine Nitrite Positive (NEGATIVE) Urine Bilirubin Negative (NEGATIVE) Urine Urobilinogen Normalmg/dL (NORMAL) Urine Leukocyte Esterase Negative (NEGATIVE) Urine RBC 0-2/hpf (0-2) Urine WBC 0-5/hpf (0-5) Urine Epithelial Cells Few/hpf (NONE-MOD) Urine Crystals None seen (NONE SEEN) Urine Bacteria Few/hpf (NONE-FEW) Urine Hyaline Casts None/lpf (NONE) Urine Granular Casts None seen (NONE SEEN) Urine Waxy Casts None seen (NONE SEEN) Urine Red Blood Cell Casts None seen (NONE SEEN) Urine White Blood Cell Casts None seen (NONE SEEN) Urine Mucus Present (None Seen) Urine Trichomonas None seen (NONE SEEN) Urine Yeast None (NONE SEEN) Urinalysis Comment None Urine Culture Reflexed Indicated Assessment/Plan Assessment/Plan ASSESSMENT PATIENT ADMITTED FOR CVA AND EMBOLIC STROKE WARFARIN PER PHARMACY ORDERED WITH ENOXAPARIN BRIDGING PLAN WARFARIN TO START AT 5MG 08/14. INR IS 1.04 ENOXAPARIN 120 MG ONCE GIVEN 08/14 WITH 80 MG Q12H START 08/15 FOR BRIDGING GOAL INR TO BE 2-3 PHARMACY WILL CONTINUE TO FOLLOW DAILY. THANK YOU FOR THE CONSULT IN THE CARE OF THIS PATIENT Irish SAENZ Kalani Taylor Aug 14, 2016 22:37
[2016-08-15] VITALS (9 sets, daily range): BP systolic 108–133; BP diastolic 69–85; PULSE 54–83; RESP 16–20; O2SAT 93–98
[2016-08-15 05:37] LABS: BASOPHILS % (AUTO) 0.3 % (0-3); EOSINOPHILS % (AUTO) 2.5 % (0-5); MONOCYTES % (AUTO) 7.8 % (4-12); Mean Corpuscular Hemoglobin 31.6 pg (27.0-35.0); NEUTROPHILS % (AUTO) 54.8 % (40-74); Platelet Count 175 bil/L (150-400)
[2016-08-15 05:55] LABS: Magnesium 1.9 mg/dL (1.6-2.6); Phosphorus 3.9 mg/dL (2.5-4.9)
[2016-08-15 05:56] LABS: INR 1.05 ratio
--- NOTE | 2016-08-15 07:50 | NUR ---
Activity Neuro check WNL. No complaints of headache, chest pain, or SOB. No signs of aspiration, pt tolerates diet and sips of thin liquids. Pt uneasy with new blood thinning medications, willing for education but needs reinforcement. Tele SR correa 56. Care continues
--- NOTE | 2016-08-15 10:59 | PCM.PNMED ---
Subjective Date of Service Aug 15, 2016 Subjective Patient tolerated the coagulant therapy, bridging heparin and Coumadin Denied any GI bleeding, headache, dizziness Able to ambulate to the bathroom Hand is still clumsy, no other signs of limb weakness Exam Vital Signs Vital Sign - Last Date Time Temp Pulse Resp B/P Pulse Ox O2 Delivery O2 Flow Rate FiO2 08/15/16 09:58 36.4 78 20 125/74 95 Room Air Intake and Output 08/14/16 08/14/16 08/15/16 Cumulative From/Thru 15:00 23:00 07:00 08/13/16 12:41 - 08/15/16 05:41 Intake Total 500 ml 588 ml 1508 ml Output Total 1000 ml 1100 ml 3700 ml Balance -500 ml -512 ml -2192 ml Intake Oral 500 ml 588 ml 1508 ml Output Urine Total 1000 ml 1100 ml 3700 ml # Voids 4 4 # Bowel Movements 0 0 Exam NAD, comfortably laying down on the bed no JVD, MMM, no LAD RRR, nl s1, s2 no mrg CTAB, no w,c S,ND,NT,normoactive BS+ warm, no edema, pulses 2/2 Neuro exam non focal grossly, unchanged IVs and Medications Medications Reviewed: Medications were reviewed in detail Lab and Diagnostics Result Diagram: 08/15/16 05008/15/16 050 X-Rays, CTs and MRIs PROCEDURE: MRI BRAIN WITHOUT CONTRAST ([id number]) INDICATIONS: right arm/facial tongue weak TECHNIQUE: Noncontrast axial T1 spin echo, axial T2 fast spin echo, sagittal and axial FLAIR, coronal T2 fast spin echo, axial gradient echo, axial diffusion and ADC through the brain. COMPARISON: None. FINDINGS: Image quality: Diagnostic. CSF Spaces: Basal cisterns are patent. No extra-axial fluid collections. Ventricles are prominent in size corresponding parenchymal volume loss is also present. Brain: No intracranial masses or hemorrhage. Schneider/white matter interface is normal. Brainstem appears normal. The small to moderate-sized areas of confluent increased flair signal are identified within the periventricular white matter. Additional scattered areas of increased flair signal are noted within the deep white matter of the supratentorial brain. There is increased signal both involving the schneider and white matter identified along the superior aspect of the posterior left frontal lobe. These areas of abnormal flair signal correspond with areas of increased diffusion signal, compatible with acute ischemia. These areas of ischemia are multifocal rather than representing a large geographic area of ischemia. Normal intravascular flow voids are present. Skull and face: Calvarium has normal marrow signal. Orbits appear normal. Sinuses: Prominent mucosal thickening of the right maxillary sinus is present. Otherwise, the remainder of the paranasal sinuses and mastoid air cells are clear. IMPRESSION: 1. Multifocal small areas of acute ischemia within the left frontal lobe are more suggestive of small showering emboli, rather than occlusion of a large intracranial vessel. 2. Mild to moderate chronic small vessel ischemic changes. 3. Moderate parenchymal volume loss. 4. Chronic right maxillary sinus disease. Dictated by: Josias Frank M.D. on 08/14/2016 at 13:09 Approved by: Josias Frank M.D. on 08/14/2016 at 13:09 Assessment & Plan Active issues and reason for admission 80-year-old male, prior coronary stent who discontinued Plavix and aspirin due to gross hematuria, known bladder mass unable to go to the [place] for urology visit due to distance, refused TPA for stroke admission, ongoing dysarthria, resolving right upper extremity weakness, less prominent left nasal labial fold. 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 LV thrombus on TTE, POA, unclear onset, unlikely result of acute MS given no signs of ACS at this time, tropx3 sets, EKG-no ischemic chg, repeat TTE did suggest ischemic cardiomyopathy consistent to hx of CAD s/p stent 2007/[place] -Patient is to follow up with cardiology at [place] upon d/c 3.Bladder mass CT KUB September 2015, h/h remained stable, pt denied gross hematuria. 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 VTE Mechanical Devices: Intermittant Pneumatic CD Time spent 35 minutes Florence Ware MD Aug 15, 2016 10:59
--- NOTE | 2016-08-15 14:26 | NUR ---
Social Work: Initial Assessment Data & Assessment: EMR Reviewed. See Initial Assessment. Title I Coordinator met with patient at bedside to complete initial assessment, discuss discharge planning and SW role explained. Patient is a 80 y/o male that admitted due to CVA. Patient's NOK is Ayanna Hernandez [phone] his daughter. Patient does not have a DPOA and declined information. Patient's primary insurance is [employer]. Patient PCP is at Clinic, [facility]. Patient does not have LTC insurance. Patient does not have SNF or HH history. Patient lives in an apartment on the first floor. Patient does not have any DME. It is anticipated that the patient will discharge home no needs via daughter's POV. Patient will require Lovenox shots four days after discharge and Coumadin for approximately a month per physician following today. Patient receives prescriptions from the [facility] mail order. SW will call [facility] on Tuesday and find out how a patient is to get new prescriptions filled when leving the hospital. SW will continue to follow patient. Plan: Patient will disharge home when medically stable via POV. SW will call [facility] on Tuesday and find out how the patient will fill new prescriptions and where is the closest place to home that he can have labs drown and shots given. SW will continue to follow. Annita Hernandez LMSW, TRACI Addendum: 08/15/16 at 1439 by ANNITA HERNANDEZ Amended: Links added.
--- NOTE | 2016-08-15 16:20 | PCM.PHAPRO ---
Progress Date of Service: Aug 15, 2016 Warfarin dosing Indication: Stroke Home Dose: New Start Anticoagulation Trends: Date Aug 15-Jul INR 1.04 1.05 INR change 0.01 Warf Dose 5 mg 5 mg Concurrently bridged with 80mg of enoxaparin q12h GOAL INR: 2-3 Summary: Continue with 5 mg dose today. Pharmacy will continue to follow daily. Thank you for consulting pharmacy in the care of this patient. Garret Story Aug 15, 2016 16:20
--- NOTE | 2016-08-15 18:01 | NUR ---
Anxiety/Activity Pt anxious about d/c home tomorrow. [facility]. tar pot worker is aware, and charge nurse informed as she will be here again tomorrow. Pt OOB frequently in room and requests to ambulate hallways. Bed down and in locked position, call light w/in reach
[2016-08-16 00:25] VITALS: BP 135/82; PULSE 69; RESP 18; O2SAT 97
--- NOTE | 2016-08-16 03:54 | NUR ---
Anxiety with Enoxaparin injection Patient stated that he was extremely hesitant and anxious about injecting himself with enoxaparin. Stated that he is trying to get a neighbor who is a physician to give him the injections. Procedure was explained in detail. Patient still felt too anxious to administer. He stated that he would try again in the morning. VSS. Call light within reach. Resting comfortably.
[2016-08-16 05:37] LABS: BASOPHILS % (AUTO) 0.3 % (0-3); EOSINOPHILS % (AUTO) 3.5 % (0-5); MONOCYTES % (AUTO) 8.6 % (4-12); Mean Corpuscular Volume 91.4 fL (81-100); NEUTROPHILS % (AUTO) 51.4 % (40-74); Platelet Count 169 bil/L (150-400)
[2016-08-16 05:44] LABS: INR 1.05 ratio
[2016-08-16 05:52] LABS: Magnesium 1.9 mg/dL (1.6-2.6); Phosphorus 4.2 mg/dL (2.5-4.9)
[2016-08-16 06:42] VITALS: BP 134/72; PULSE 66; RESP 20; O2SAT 96
[2016-08-16] MEDS ORDERED: LOV80 SUBQ (10:10)
[2016-08-16] MEDS ORDERED: ASPI81TA3 PO (10:10)
[2016-08-16] MEDS ORDERED: WARF5TAB PO (10:10)
[2016-08-16] MEDS ORDERED: ATOR40TA69 PO (10:10)
[2016-08-16 10:22] VITALS: PULSE 87
[2016-08-16 13:42] VITALS: BP 120/78; PULSE 69; RESP 20; O2SAT 98
--- NOTE | 2016-08-16 15:42 | NUR ---
Social Work Continued Discharge Planning: Systems Manager spoke with patient's nurse Pam [phone] at the [facility] and she stated that the patient's prescriptions can be picked up at [facility] [address] [place] [address] . Patient will report to the [facility] in [facility] to complete his labs needed. [facility]'s [facility] nurse will follow-up with him and notify him of when he is able to see the rn documentation. Systems Manager called the patient's daughter and notified her of the information above. Systems Manager will continue to follow. Amaya Kaplan.
--- NOTE | 2016-08-16 18:09 | PCM.PNMED ---
Subjective Date of Service Aug 16, 2016 Subjective denies any new issues/complaints Exam Vital Signs Vital Sign - Last Date Time Temp Pulse Resp B/P Pulse Ox O2 Delivery O2 Flow Rate FiO2 08/16/16 13:42 36.7 69 20 120/78 98 Room Air Intake and Output 08/15/16 08/15/16 08/16/16 Cumulative From/Thru 15:00 23:00 07:00 08/13/16 12:41 - 08/16/16 06:42 Intake Total 1040 ml 1200 ml 3748 ml Output Total 795 ml 1350 ml 5845 ml Balance 245 ml -150 ml -2097 ml Intake Oral 1040 ml 1200 ml 3748 ml Output Urine Total 795 ml 1350 ml 5845 ml # Voids 1 4 9 # Bowel Movements 0 0 General: Alert, Oriented X3, Cooperative, No Acute Distress Eyes: PERRLA, EOMI, Scleral Anicteric Mouth: Mucous Membr Moist/[place] Neck: Supple Chest & Lungs: Chest Wall Normal, Clear to auscultation & percussion Cardiovascular: Regular Rate/Rhythm Abdomen: Non-tender, Non-distended, Normoactive bowel tones, Soft Extremities: No cyanosis/clubbing/edma bilat Neurological: Grossly Neurologically Intact, Cranial Nerves 2-12 Intact, Normal Speech IVs and Medications Medications Reviewed: Medications were reviewed in detail Lab and Diagnostics Result Diagram: 08/16/1644908/16/16 045 X-Rays, CTs and MRIs PROCEDURE: MRI BRAIN WITHOUT CONTRAST ([id number]) INDICATIONS: right arm/facial tongue weak TECHNIQUE: Noncontrast axial T1 spin echo, axial T2 fast spin echo, sagittal and axial FLAIR, coronal T2 fast spin echo, axial gradient echo, axial diffusion and ADC through the brain. COMPARISON: None. FINDINGS: Image quality: Diagnostic. CSF Spaces: Basal cisterns are patent. No extra-axial fluid collections. Ventricles are prominent in size corresponding parenchymal volume loss is also present. Brain: No intracranial masses or hemorrhage. Schneider/white matter interface is normal. Brainstem appears normal. The small to moderate-sized areas of confluent increased flair signal are identified within the periventricular white matter. Additional scattered areas of increased flair signal are noted within the deep white matter of the supratentorial brain. There is increased signal both involving the schneider and white matter identified along the superior aspect of the posterior left frontal lobe. These areas of abnormal flair signal correspond with areas of increased diffusion signal, compatible with acute ischemia. These areas of ischemia are multifocal rather than representing a large geographic area of ischemia. Normal intravascular flow voids are present. Skull and face: Calvarium has normal marrow signal. Orbits appear normal. Sinuses: Prominent mucosal thickening of the right maxillary sinus is present. Otherwise, the remainder of the paranasal sinuses and mastoid air cells are clear. IMPRESSION: 1. Multifocal small areas of acute ischemia within the left frontal lobe are more suggestive of small showering emboli, rather than occlusion of a large intracranial vessel. 2. Mild to moderate chronic small vessel ischemic changes. 3. Moderate parenchymal volume loss. 4. Chronic right maxillary sinus disease. Dictated by: oJsias Frank M.D. on 08/14/2016 at 13:09 Approved by: Josias Frank M.D. on 08/14/2016 at 13:09 Assessment & Plan 80-year-old male, prior coronary stent who discontinued Plavix and aspirin due to gross hematuria, known bladder mass unable to go to the [place] for urology visit due to distance, refused TPA for stroke admission presenting with dysarthria, resolving right upper extremity weakness, less prominent left nasal labial fold. 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 Ware's earlier notes: "spoke to Cardiollgy 08/14, recommended to start AC, started LMWH 120mg, followed by 80mg q12h, bridge with Coumadin. pt should continue aspirin given CAD as well, will continue to hold Plavix" - I also discussed patient's case with neurology (Dr. Montes) and cardiology ( Dr. Worthy) on 08/16/16 who agree with above plan and both recommend further f/ u w/ neurology and cardiology within one month. # LV thrombus on TTE, POA, unclear chronicity - TTE did suggest ischemic cardiomyopathy consistent to hx of CAD s/p stent 2007 / - c/w Lovenox to Coumadin bridge (as noted above) - further f/u w/ cardiology as outpatient # Bladder mass CT [facility] September 2015, h/h remained stable, pt denied gross hematuria. unlikely absolute contraindication for AC - f/u h/h closely on newly starting AC - further f/u w/ urology as outpatient chronic, stable: # BPH # HTN, stable - continue home meds # Carpal tunnel # Kidney stones/left kidney is not functional # Acid reflux # Back injury # Arthritis Dispo: possibly tomorrow VTE Mechanical Devices: Intermittant Pneumatic CD Time spent 35 min Bennie Fung Aug 16, 2016 18:09
[2016-08-16 20:30] VITALS: BP 150/80; PULSE 69; RESP 20; O2SAT 96
--- NOTE | 2016-08-17 01:13 | NUR ---
Activity Patient ambulating around room and hallway this shift. Patient states no pain or deficits from cva. Patient administered lovenox injection correctly. VSS. Call light within reach. Patient resting comfortably.
[2016-08-17 04:23] VITALS: BP 127/76; PULSE 65; RESP 16; O2SAT 96
[2016-08-17 05:58] LABS: INR 1.2 ratio
--- NOTE | 2016-08-17 12:53 | NUR ---
Social Work Continued Discharge Planning: SW spoke to patient regarding discharge plan. Patient required PT/INR follow up upon discharge. FLORENCE spoke to CT worker Pam, who states that patient able to be followed at [facility] center for INR follow up anytime from 8am-3pm following discharge. FLORENCE discussed with patient. Patient has no transport/funds to and from for INR follow up. FLORENCE discussed with [facility] worker Pam options for transport. Pam recommended [facility] service arrangements. FLORENCE arranged [facility] for INR monitoring. [facility] choice list offered. Patient states choice as [facility]. FLORENCE contacted [facility] rep Aaron who was advised for discharge for today for follow up tomorrow. SW notated on face to face for follow up with [facility] per [facility] request. Patient aware to obtain scripts from [facility] as medications were sent to pharmacy. Patient states daughter to provide transport home. No other needs identified at this time. PLAN: Home with [facility] for INR monitoring via [facility]. SW to follow if further needs identified. Bryan SAINZ Addendum: 08/17/16 at 1407 by MARK CALDERON SS STOC tomorrow per [facility] repDalila Calderon
--- NOTE | 2016-08-17 13:20 | PCM.DIMED ---
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 unclear chronicity # History of bladder mass of unclear etiology and requiring further followup by urology as outpatient. chronic and stable issues: # History of hypertension. # Carpal tunnel # Kidney stones # Acid reflux # Back injury # Arthritis Medication Instructions Continue with subcutaneous Lovenox and oral Warfarin (Coumadin) until INR greater or equal to 2. Once INR greater or equal to 2 then stop Lovenox and if INR between 2-3 continue with Warfarin. If INR greater than 3 then check with primary care provider to adjust the Warfarin dose. Visiting nurse ([facility]) to check INR on 08/18/16 with results to primary care provider at the [place] and then followup with further instructions on when to repeat INR and adjust Coumadin dose as needed. Diet Low fat, Low Sodium, Heart Healthy Activity No restrictions Call your provider Fever or Chills, Shortness of breath, Bleeding, Chest pain, Weakness (unilateral ) Patient Instructions Seek immediate medical attention if any new or worsening signs or symptoms occur. Outpatient occupational therapy for right upper extremity for fine motor control. Visiting nurse ([facility]) to check INR on 08/18/16 with results to primary care provider at the [place] and then followup with further instructions on when to repeat INR and adjust Coumadin dose as needed. Goal INR is 2-3. Follow-up plan 1. Followup with your primary care provider at the [place] in 2-7 days and for further referral to therapist radiation and neurologist within the next 2-4 weeks ( check with your primary care provider for authorization to see the specialist locally if possible). Follow-up Provider: [facility] Bennie Fung Aug 17, 2016 13:19
--- NOTE | 2016-08-17 14:40 | NUR ---
Evaluation completed. Please go to "Notes" then click on "Assessments and Notes" (bottom left corner of screen). Then select appropriate discipline tab on top of screen.
[2016-08-17] MEDS ORDERED: Warfarin 5 MG, Warfarin 2.5 MG PO ONE ×2 (17:00)
--- NOTE | 2016-08-17 17:14 | NUR ---
DISCHARGE Removed saline lock IV from right forearm, catheter intact. Administered today's dose of coumadin prior to discharge. Reviewed new medications and dosages with patient and daughter at bedside. Patient's family had already picked up new medications at [place] [facility] prior patient's discharge. Advised to make appointment with PCP at [place] within next 5 days for referral to cardiology. Patient was taught how to administer Lovenox injections and administered this mornings dose without any difficulty. Patient wheeled out to family vehicle in wheelchair.
--- NOTE | 2016-08-17 17:43 | PCM.DC.MED ---
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 unclear chronicity # History of bladder mass of unclear etiology and requiring further followup by urology as outpatient. chronic and stable issues: # History of hypertension. # Carpal tunnel # Kidney stones # Acid reflux # Back injury # Arthritis Procedures XRay, CTs & MRIs PROCEDURE: MRI BRAIN WITHOUT CONTRAST ([id number]) IMPRESSION: 1. Multifocal small areas of acute ischemia within the left frontal lobe are more suggestive of small showering emboli, rather than occlusion of a large intracranial vessel. 2. Mild to moderate chronic small vessel ischemic changes. 3. Moderate parenchymal volume loss. 4. Chronic right maxillary sinus disease. Dictated by: Josias Frank M.D. on 08/14/2016 at 13:09 Approved by: Josias Frank M.D. on 08/14/2016 at 13:09 Cardiac Echo Impression Date of Service: 08/14/16 0800 Echocardiogram Report Interpretation Summary The left ventricle is mildly dilated. A small thrombus is noted in the left ventricular apex measuring approximately 1.3 cm x 1.3 cm. There is moderate global hypokinesis of the left ventricle. There is apical akinesis. There is a significant dyssynchronous contraction pattern, consistent with a conduction abnormality. The E/A ratio is reversed with an elevated E/E', suggesting impaired early relaxation of the left ventricle with possible increased filling pressures. The IVC is dilated (diameter is greater than 2.1 cm) yet it collapses greater than 50% with a sniff. This suggests a right atrial pressure of 8 mm Hg. There is no significant valvular heart disease. No other echocardiographic abnormalities seen. Reading Physician:11:23 AM Humphrey Paniagua MD Report status: Signed with Addenda REPORT#: [id number] Other Diagnostics Date of Service: 08/13/16 1430 PROCEDURE: US BILATERAL DUPLEX DOPPLER IMAGING OF THE CAROTIDS ([id number]) IMPRESSION: 1. No stenosis of the right internal carotid artery. 2. Less than 50% stenosis of the left internal carotid artery. Dictated by: Gladys Bradley M.D. on 08/13/2016 at 18:32 Approved by: Gladys Bradley M.D. on 08/13/2016 at 18:32 Brief History 80-year-old male, prior coronary stent who discontinued Plavix and aspirin due to gross hematuria, known bladder mass unable to go to the [place] for urology visit due to distance, refused TPA for stroke admission presenting with dysarthria, resolving right upper extremity weakness, less prominent left nasal labial fold. 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 Ware's earlier notes: "spoke to Cardiollgy 08/14, recommended to start AC, started LMWH 120mg, followed by 80mg q12h, bridge with Coumadin. pt should continue aspirin given CAD as well, will continue to hold Plavix" - I also discussed patient's case with neurology (Dr. Montes) and cardiology ( Dr. Worthy) on 08/16/16 who agree with above plan and both recommend further f/ u w/ neurology and cardiology within one month. # LV thrombus on TTE, POA, unclear chronicity - TTE did suggest ischemic cardiomyopathy consistent to hx of CAD s/p stent 2007 / - c/w Lovenox to Coumadin bridge (as noted above) - further f/u w/ cardiology as outpatient # Bladder mass CT [facility] September 2015, h/h remained stable, pt denied gross hematuria. unlikely absolute contraindication for AC - f/u h/h closely on newly starting AC - further f/u w/ urology as outpatient chronic, stable: # BPH # HTN, stable - continue home meds # Carpal tunnel # Kidney stones/left kidney is not functional # Acid reflux # Back injury # Arthritis by day of d/c neuro exam is fairly non-focal. CN II-XII intact. lungs CTA bilat pt setup with HH visiting nurse to check INR tomorrow and [facility] to further manage bridging Lovenox to Coumadin as outpatient. I also attempted to set patient up with local cardiology but have been told his PCP at [place] needs to authorize out of [facility] referrals. Exam Vital Signs (Last) Date Time Temp Pulse Resp B/P Pulse Ox O2 Delivery O2 Flow Rate FiO2 08/17/16 04:23 36.6 65 16 127/76 96 Room Air Test 08/13/16 12:45 08/14/16 05:19 08/14/16 19:00 08/16/16 04:50 Hold [place] Top Tube Received (Received) Hemoglobin A1c 6.2% (4.8-5.6) Troponin T 0.010ug/L (0.0-0.011) Triglycerides Level 104mg/dL (0-149) Cholesterol Level 149mg/dL (100-199) LDL Cholesterol, Calculated 74.200mg/dL (0-99) VLDL Cholesterol 20.800mg/dL HDL Cholesterol 54mg/dL (>39) Cholesterol/HDL Ratio 2.76 (0.0-4.4) Urine Color Straw (YELLOW) Urine Appearance Clear (CLEAR,HAZY) Urine pH 7.0 (5.0-8.0) Urine Specific [place] 1.010 (1.003-1.035) Urine Protein Negativemg/dL (NEG,TRACE) Urine Glucose (UA) Negativemg/dL (NEGATIVE) Urine Ketones Negativemg/dL (NEGATIVE) Urine Occult Blood Trace (NEGATIVE) Urine Nitrite Positive (NEGATIVE) Urine Bilirubin Negative (NEGATIVE) Urine Urobilinogen Normalmg/dL (NORMAL) Urine Leukocyte Esterase Negative (NEGATIVE) Urine RBC 0-2/hpf (0-2) Urine WBC 0-5/hpf (0-5) Urine Epithelial Cells Few/hpf (NONE-MOD) Urine Crystals None seen (NONE SEEN) Urine Bacteria Few/hpf (NONE-FEW) Urine Hyaline Casts None/lpf (NONE) Urine Granular Casts None seen (NONE SEEN) Urine Waxy Casts None seen (NONE SEEN) Urine Red Blood Cell Casts None seen (NONE SEEN) Urine White Blood Cell Casts None seen (NONE SEEN) Urine Mucus Present (None Seen) Urine Trichomonas None seen (NONE SEEN) Urine Yeast None (NONE SEEN) Urinalysis Comment None Urine Culture Reflexed Indicated White Blood Count 6.6th/mm3 (3.8-10.1) Red Blood Count 4.77mil/mm3 (4.40-5.80) Hemoglobin 14.8g/dL (13.8-17.2) Hematocrit 43.6% (41.0-50.0) Mean Corpuscular Volume 91.4fL (81-100) Mean Corpuscular Hemoglobin 31.0pg (27.0-35.0) Mean Corpuscular Hemoglobin Concent 33.9% (32.0-37.0) Red Cell Distribution Width 12.5% (12.3-15.4) Platelet Count 169bil/L (150-400) Neutrophils (%) (Auto) 51.4% (40-74) Lymphocytes (%) (Auto) 35.9% (14-46) Monocytes (%) (Auto) 8.6% (4-12) Eosinophils (%) (Auto) 3.5% (0-5) Basophils (%) (Auto) 0.3% (0-3) Sodium Level 139mEq/L (134-144) Potassium Level 4.1mEq/L (3.5-5.2) Chloride Level 101mEq/L (97-108) Carbon Dioxide Level 26mmol/L (18-29) Blood Urea Nitrogen 17mg/dL (8-27) Creatinine 1.05mg/dL (0.76-1.27) Estimat Glomerular Filtration Rate 72mL/min (>59) Glucose Level 117mg/dL (60-99) Calcium Level 8.9mg/dL (8.5-10.1) Phosphorus Level 4.2mg/dL (2.5-4.9) Magnesium Level 1.9mg/dL (1.6-2.6) Total Bilirubin 0.5mg/dL (0.0-1.2) Aspartate Amino Transf (AST/SGOT) 14U/L (0-50) Alanine Aminotransferase (ALT/SGPT) 14U/L (0-44) Alkaline Phosphatase 62U/L (25-160) Total Protein 6.0g/dL (6.4-8.4) Albumin 3.9g/dL (3.4-5.0) Test 08/17/16 04:49 Prothrombin Time 12.9sec (8.1-12.5) Prothromb Time International Ratio 1.20ratio Discharge Medications Discharge Medications Alfuzosin ER (Alfuzosin ER) 10 Mg Tab.er.24h 10 MG PO DAILY (Reported) Aspirin Chew (Aspirin Chew) 81 Mg Chew 81 MG PO DAILY Prescribed by: BENNIE BLANCHARD MD Atorvastatin Calcium (Atorvastatin Calcium) 40 Mg Tablet 40 MG PO HS Prescribed by: BENNIE BLANCHARD MD Cholecalciferol (Vitamin D3) (Vitamin D) 1,000 Unit Tablet 2,000 UNIT PO DAILY ( Reported) Enoxaparin (Lovenox) 80 Mg/0.8 Ml Syringe 80 MG SUBQ Q12 Prescribed by: BENNIE BLANCHARD MD Warfarin Sodium (Coumadin) 5 Mg Tablet 5 MG PO DAILY Prescribed by: BENNIE BLANCHARD MD As needed Dextran 70/Hypromellose/Pf (Artificial Tears Drops) 1 Each Droperette 2 DROP BOTH_EYES BID PRN PRN For Eye Irritation (Reported) Additional med instructions Continue with subcutaneous Lovenox and oral Warfarin (Coumadin) until INR greater or equal to 2. Once INR greater or equal to 2 then stop Lovenox and if INR between 2-3 continue with Warfarin. If INR greater than 3 then check with primary care provider to adjust the Warfarin dose. Visiting nurse (Home Health) to check INR on 08/18/16 with results to primary care provider at the [place] and then followup with further instructions on when to repeat INR and adjust Coumadin dose as needed. Followup Plan Disposition: Home with Follow-up plan 1. Followup with your primary care provider at the [place] in 2-7 days and for further referral to tentering machine off bearer and neurologist within the next 2-4 weeks ( check with your primary care provider for authorization to see the specialist locally if possible). Discharge Diet: Low fat, Low Sodium, Heart Healthy Discharge Activity: No restrictions Patient Instructions Seek immediate medical attention if any new or worsening signs or symptoms occur. Outpatient occupational therapy for right upper extremity for fine motor control. Visiting nurse (Home Health) to check INR on 08/18/16 with results to primary care provider at the [place] and then followup with further instructions on when to repeat INR and adjust Coumadin dose as needed. Goal INR is 2-3. Follow-up Provider: MICKEY RAMIREZ Time spent 35 min copies to: [facility] Bennie Zapata Aug 17, 2016 17:43
== END 2016-08-17 18:16 | disposition home health service (06) | DRG 66 ==
LOC: SED 12:03 → EDSEX 12:03 → EDBD 12:03 → OSC 15:31
PROVIDERS: ADMIT Urology; ATTEND Urology
DX: I63.8 Other cerebral infarction (principal); I10 Essential (primary) hypertension; I25.5 Ischemic cardiomyopathy; E78.5 Hyperlipidemia, unspecified; I25.10 Atherosclerotic heart disease of native coronary artery without angina pectoris; R29.810 Facial weakness; R27.0 Ataxia, unspecified; I25.2 Old myocardial infarction; R47.1 Dysarthria and anarthria; R40.2142 Coma scale, eyes open, spontaneous, at arrival to emergency department; R40.2252 Coma scale, best verbal response, oriented, at arrival to emergency department; R40.2362 Coma scale, best motor response, obeys commands, at arrival to emergency department; K21.9 Gastro-esophageal reflux disease without esophagitis; N40.0 Benign prostatic hyperplasia without lower urinary tract symptoms; J32.8 Other chronic sinusitis; Z95.5 Presence of coronary angioplasty implant and graft; N28.89 Other specified disorders of kidney and ureter; M19.90 Unspecified osteoarthritis, unspecified site